=== PATIENT | male | born 1965 | race Caucasian/White ===

== ENCOUNTER → 2017-02-23 | Outpatient (CLI) | payer OTHER | LOC: RAD 15:19 | DX: Z00.00 Encounter for general adult medical examination without abnormal findings (principal); L40.9 Psoriasis, unspecified ==

== ENCOUNTER → 2018-09-09 | Outpatient (CLI) | payer OTHER | LOC: RAD 15:04 | DX: L40.0 Psoriasis vulgaris (principal); Z79.899 Other long term (current) drug therapy ==

== ENCOUNTER → 2018-10-07 | Outpatient (CLI) | payer OTHER ==
[~2018-10-07] VITALS: Ht 182.9 cm; Wt 95.8 kg
[~2018-10-07] MED LIST: ALLEGRA ALLERG180 MG PO; ASTEPRO205.5 MCG/ NASAL; AVODART0.5 MG PO; BREO ELLIPTA 11 EACH PO; ELIQUIS5 MG PO; FLOMAX0.4 MG PO; FLONASE 0.05%50 MCG NASAL; MEDROLDOSEPACK PO; NEXIUM40 MG PO; NORCO 5-325 TA1 EACH PO; ORACEA40 MG PO; SINGULAIR 10 MG10 M1 PO; TREMFYA100 MG/1 M SUBQ; VALIUM5 MG PO
--- NOTE | ~2018-10-07 | HPC ---
[facility] [place] [address] PAIN MANAGEMENT CONSULTATION Name: JABIER ARELLANO Room #: REG ETHAN Liliane.#: [id number] Admission: 10/07/18 Attend Phys: Zackery Prado MD Discharge: Date of : 61 Report #: [id number] THIS REPORT FOR: //name// CC: Nakul Downey MD [facility] Brayden Prado DATE OF SERVICE: 10/07/2018 CHIEF COMPLAINT: Neck pain with radiation in the left forearm. 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 Downey for evaluation of cervical radiculopathy. He has had some pain off and on over course of several years. He has previously had a cervical epidural injection when the pain has been severe with good resolution. This current episode began off and on about 6 weeks ago. It progressed to the point where he had significant pain radiating through the thumb and index finger on the left hand closely following the C6 distribution. Along with that, he had numbness and tingling, but no weakness. He took a Medrol Dosepak and was improved. Was actually new formulation once a day, time release formulation to reduce side effects. The radicular pain has fairly clearly resolved, but he still has quite a bit of pain in his neck. He has developed some secondary muscle spasm. He describes it as sharp, intermittent pain, scoring is a 9/10. MEDICATIONS: Eliquis for DVT, which developed after a flight. 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 Tremfya, Breo, Singulair, Flomax, Avodart, Nexium, Jessi, Flonase, azelastine and Oracea. PAST MEDICAL HISTORY: Asthma aggressively treated, history of DVT and history of urinary tract issues with BPH. 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 Denies use of tobacco, drinks alcohol about once or twice a week in a social setting. PHYSICAL EXAMINATION: 6 feet tall, 211 pounds, BMI is 28.6. Blood pressure 129/87, heart rate 73, respirations 14, O2 sat 96. Examination of the neck reveals decreased range of motion and rotation to the left and in flexion. He has a positive Spurling's, which is mild to moderate. He does not complain of as much pain today in the upper extremities. Good range of motion is noted in the shoulders, elbows and wrist. Deep tendon reflexes are 2+ at biceps, triceps and brachioradialis bilaterally. Muscle strength in deltoid, biceps, triceps and channel director strength is all within normal limits without any asymmetry. There is no loss of sensation. Examination of lower extremity reflexes reveals normal reflexes at knees and ankle with no evidence of hyperreflexia. [facility] [address] [place] [address] PAIN MANAGEMENT CONSULTATION Name: JABIER ARELLANO Room #: REG ETHAN Stewart#: [id number] Admission: 10/07/18 Attend Phys: Zackery Prado MD Discharge: Date of : 61 Report #: [id number] IMPRESSION: Left C6 radiculopathy, recurrent. Episode of severe neck pain. RECOMMENDATIONS: 1. MRI of the cervical spine without contrast. 2. Long discussion regarding medications. I have urged him not to take nonsteroidal anti-inflammatory drugs while on Eliquis. 3. Renew a Medrol Dosepak. 4. Valium prescribed for MRI claustrophobia. 5. Prescription of hydrocodone 5/325, 12 tablets for severe pain. If he finds that this is effective and he wants to continue on it, then he can call our clinic and we will provide him with additional medication until we get the MRI. 6. Cervical epidural injection, but he will need to be off his Eliquis for 3-4 days before we can perform the shot. Followup visit planned in 2 weeks. We will review his MRI at that time. Further plans will be based a bit on what we see on the MRI scan. By: [id number] Zackery Prado MD /nt
[2018-10-07 11:53] VITALS: BP 129/87
--- NOTE | 2018-10-07 12:12 | NUR ---
Pain Clinic Assessment: 1. History of Osteoarthritis: Not Applicable History of Rheumatoid Arthritis: Not Applicable 2. Height: 6 ft. 0 in. 182.9 cm. Weight: 211.2 lb. oz. 95.800 kg. Patient's BMI: 28.6 3. Vital Signs: BP: 129/87 Pulse: 73 Resp: 14 Temp: 02 Sat: 96 ECG Mon: 4. Pain Intensity: 9 5. Fall Risk: Dizziness: N Needs help standing or walking: N Fallen in the last 3 months: N Fall risk comments: 6. Patient on Blood Thinner: LENNYQUIS 7. History of Hypertension: N 8. Opioid Therapy greater than 6 weeks: N Opiate Contract Signed: 9. Risk Assessment Tool Provided: LOW RISK 0/3 10. Functional Assessment Tool: 48/ 11. Recreational Drug Use: Never Drug Type: Tobacco Use: Never Smoker Tobacco Type: Amount or Packs/day: How Many Years: Alcohol Use: Yes Frequency: Weekly Quant: 2
== END ==
LOC: PAIN 09:39
DX: M54.12 Radiculopathy, cervical region (principal); Z79.899 Other long term (current) drug therapy

== ENCOUNTER → 2018-10-21 | Outpatient (CLI) | payer OTHER | LOC: MRI 10-13 10:29 | DX: M47.22 Other spondylosis with radiculopathy, cervical region (principal); M48.02 Spinal stenosis, cervical region; M25.78 Osteophyte, vertebrae ==

== ENCOUNTER → 2019-01-18 | Outpatient (CLI) | payer OTHER | LOC: CAT 14:02 | DX: Z13.6 Encounter for screening for cardiovascular disorders (principal); I25.10 Atherosclerotic heart disease of native coronary artery without angina pectoris; E78.00 Pure hypercholesterolemia, unspecified ==

== ENCOUNTER → 2020-02-08 | Outpatient (CLI) | payer BC | LOC: SJCVCIMAG 07:16 | DX: M79.604 Pain in right leg (principal); R22.41 Localized swelling, mass and lump, right lower limb ==

== ENCOUNTER → 2020-03-13 | Outpatient (CLI) | payer BC | LOC: SJCVCIMAG 15:27 | PROVIDERS: ATTEND Internal Medicine Cardiovascular Disease | DX: R93.1 Abnormal findings on diagnostic imaging of heart and coronary circulation (principal); I25.10 Atherosclerotic heart disease of native coronary artery without angina pectoris; E78.5 Hyperlipidemia, unspecified; Z86.718 Personal history of other venous thrombosis and embolism ==

== ENCOUNTER → 2021-04-04 | Outpatient (CLI) | payer BC, OTHER ==
[~2021-04-04] VITALS: Ht 182.9 cm; Wt 94.6 kg
[~2021-04-04] MED LIST changes: +CRESTOR5 MG PO; +FLONASE 0.05%50 MCG NARES; +TRAMADOL 50 MG50 MG PO; +TRELEGY ELLIPT1 EACH IH
[2021-04-04 14:40] VITALS: BP 126/81
--- NOTE | 2021-04-04 14:55 | NUR ---
Pain Clinic Assessment: 1. History of Osteoarthritis: Not Applicable History of Rheumatoid Arthritis: Not Applicable 2. Height: 6 ft. 0 in. 182.9 cm. Weight: 208.6 lb. oz. 94.620 kg. Patient's BMI: 28.3 3. Vital Signs: BP: 126/81 Pulse: 68 Resp: 14 Temp: 02 Sat: 95 ECG Mon: 4. Pain Intensity: 3 5. Fall Risk: Dizziness: N Needs help standing or walking: N Fallen in the last 3 months: N Fall risk comments: 6. Patient on Blood Thinner: None 7. History of Hypertension: N 8. Opioid Therapy greater than 6 weeks: N Opiate Contract Signed: 9. Risk Assessment Tool Provided: LOW RISK 0/3 10. Functional Assessment Tool: 11. Recreational Drug Use: Never Drug Type: Tobacco Use: Never Smoker Tobacco Type: Amount or Packs/day: How Many Years: Alcohol Use: Yes Frequency: Weekly Quant: 2
== END ==
LOC: PAIN 10:44
PROVIDERS: ATTEND Anesthesiology Pain Medicine
DX: M54.5 Low back pain (principal); Z79.899 Other long term (current) drug therapy; Z79.891 Long term (current) use of opiate analgesic; Z68.28 Body mass index [BMI] 28.0-28.9, adult